=== PATIENT | female | born 1980 | race Caucasian/White ===

== ENCOUNTER 2018-01-25 07:32 | Emergency (ER) | payer SELFPAY | END 2018-01-25 08:08 | disposition home or self-care (01) | LOC: FTE 07:32 | DX: R05 Cough (principal) | CPT/HCPCS: 99283 ==

== ENCOUNTER 2018-02-05 23:59 | Emergency (ER) | payer MEDICAID ==
[2018-02-06] MEDS: IBUPROFEN 800 MG TAB PO (00:56)
[2018-02-06] MEDS: ACETAMINOPHEN 500 MG TAB PO (00:57)
[2018-02-06] MEDS: SOD CHLORIDE 0.9% 1,000 ML IV ×2 (00:57→02:58)
[2018-02-06] MEDS: CEFTRIAXONE 1 GM/50 ML (PMX) 50 ML IVPB (02:21)
== END 2018-02-06 04:27 | disposition home or self-care (01) ==
LOC: FTE 23:59
DX: J40 Bronchitis, not specified as acute or chronic (principal); H66.92 Otitis media, unspecified, left ear; J01.90 Acute sinusitis, unspecified
CPT/HCPCS: 71046; 81025; 87400; 96374; 99284-25